=== PATIENT | female | born 1975 | race Caucasian/White ===

== ENCOUNTER 2017-07-27 11:57 | Observation (INO) | payer BC, MEDICAID ==
[2017-07-27] MEDS ORDERED: NS 0.9% 1000 ML* 1,000 ML IV ONE (12:21)
[2017-07-27] MEDS ORDERED: Aspirin EC TAB* 325 MG PO ONE (12:36)
--- NOTE | 2017-07-27 12:38 | RAD ---
Indication: Neurological changes. Code benoit. Comparison: March 05, 2015 MRI and March 01, 2015 CT. Technique: Noncontrast CT vertex of skull through foramen magnum. Report: The sulci, ventricles, and basal cisterns are normal for age. Valentine matter white matter differentiation is preserved without evidence for edema. No intra or extra axial hemorrhage, mass, or fluid collection detected. Unremarkable partially visualized orbital contents. Unremarkable calvarium and skull base. Unremarkable scalp. The visualized paranasal sinuses and mastoid air spaces are clear. IMPRESSION: Negative for intracranial hemorrhage or CT stigmata of ischemic stroke. No acute intracranial process evident. Negative exam. Results discussed with Dr. Hadley 07/27/2017 12:34 PM EST
[2017-07-27 12:40] LABS: ABS Basophils 0.1 10^3/ul (0-0.2); ABS Eosinophils 0.1 10^3/ul (0-0.6); ABS Lymphocytes 1.9 10^3/ul (1.0-4.8); ABS Monocytes 0.6 10^3/ul (0-0.8); ABS Neutrophils 7.8 10^3/ul (1.5-7.7); ABS Nucleated RBC 0 10^3/ul; Hematocrit 44 % (35-47); Hemoglobin 15.2 g/dl (12.0-16.0); Mean Corpuscular HGB Conc 35 g/dl (31-36); Mean Corpuscular Hemoglobin 31 pg (27-31); Mean Corpuscular Volume 89 fL (80-97); Mean Platelet Volume 7 um3 (7.4-10.4); Nucleated Red Blood Cells % 0; Platelet Count 284 10^3/ul (150-450); Red Blood Count 4.91 10^6/ul (4.0-5.4); Red Cell Distribution Width 14 % (10.5-15); White Blood Count 10.4 10^3/ul (3.5-10.8)
[2017-07-27 13:05] LABS: INR 0.94 (0.77-1.02)
--- NOTE | 2017-07-27 13:20 | RAD ---
HISTORY: Right arm numbness numbness, slurred speech COMPARISONS: None VIEWS: 1: frontal portable view of the chest at 12:55 PM FINDINGS: LINES AND TUBES: None. CARDIOMEDIASTINAL SILHOUETTE: The cardiomediastinal silhouette is normal for portable technique. PLEURA: The costophrenic angles are sharp. No pleural abnormalities are noted. LUNG PARENCHYMA: The lungs are clear. ABDOMEN: The upper abdomen is clear. There is no subphrenic gas. BONES AND SOFT TISSUES: No bone or soft tissue abnormalities are noted. IMPRESSION: NO ACTIVE CARDIOPULMONARY DISEASE.
[2017-07-27 14:21] LABS: Urine Appearance Cloudy; Urine Blood Negative (Negative); Urine Color Yellow; Urine Ketones Negative (Negative); Urine Protein Negative (Negative); Urine Specific Gravity 1.006 (1.010-1.030); Urine Urobilinogen Negative (Negative)
--- NOTE | 2017-07-27 15:09 | ECHO ---
Patient: JOSÉ MIGUEL BHARDWAJ Rec#: [id number] : 1975 Date: 07/27/2017 Age: 42y Height: 170.18 cm / 67.0 in Weight: 97.52 kg / 214.9 lbs Sex: F BSA: 2.09 Room#: ED-3 Admit Date#: 07/27/2017 Type: Inpatient Referring: Rickey Purcell Reading: Kurt Gordon MD Purchasing Analyst: Cherise Valentine RDCS CC: Xochilt Duran, DO Transthoracic Echocardiogram Indication: TIA BP: 115/71 HR: 61 Rhythm: NSR Findings History: Smoker, PTSD, headaches. Technical Comments: The study quality is fair. The study is technically limited due to patient body habitus. Completed at 1500. Left Ventricle: The left ventricular chamber size is normal. There is no left ventricular hypertrophy. Global left ventricular wall motion and contractility are within normal limits. There is normal left ventricular systolic function. The estimated ejection fraction is 55-60%. Normal left ventricular diastolic filling is observed. Left Atrium: The left atrial chamber size is normal. Right Ventricle: Moderator Band present. The right ventricular cavity size is normal. The right ventricular global systolic function is low normal. Right Atrium: The right atrial cavity size is normal. The bubble study is negative.There is no evidence of right to left shunting at the atrial level on bubble study. Aortic Valve: The aortic valve is trileaflet. There is mild thickening of the non coronary cusp. There is no evidence of aortic regurgitation. There is no evidence of aortic stenosis. Mitral Valve: The mitral valve leaflets do not appear thickened. There is a trace of mitral regurgitation. There is no evidence of mitral stenosis. Tricuspid Valve: The tricuspid valve leaflets are normal. There is a physiologic tricuspid regurgitation. Unable to estimate the right ventricular systolic pressure. There is no tricuspid stenosis. Pulmonic Valve: The pulmonic valve appears normal. There is no evidence of pulmonic regurgitation. There is no pulmonic stenosis. Pericardium: There is no significant pericardial effusion. A pericardial fat pad is visualized. Aorta: There is no dilatation of the ascending aorta. There is no dilatation of the aortic arch. The aortic root is normal in size. Pulmonary Artery: The main pulmonary artery appears normal. Venous: The inferior vena cava appears normal in size. There is a greater than 50% respiratory change in the inferior vena cava dimension. Contrast: Normal saline was used as contrast for the bubble study. Images 12 and 13. Intravenous contrast was used to help determine presence of intracardiac shunting. Conclusions Global left ventricular wall motion and contractility are within normal limits. There is normal left ventricular systolic function. The estimated ejection fraction is 55-60%. There is a trace of mitral regurgitation. There is a trace of mitral regurgitation. There is a physiologic tricuspid regurgitation. There is no evidence of right to left shunting at the atrial level on bubble study. No reports of prior studies are offered for comparison. Measurements Name Value Normal Range RVIDd (AP) 2D 3.1 cm (0.9 - 2.6) RVDdMajor (2D) 3.6 cm (2.2 - 4.4) RAd ISD 4CH 4.5 cm (3.4 - 4.9) RA (A4C)W 3.6 cm (2.9 - 4.6) IVSd (2D) 1 cm (0.6 - 1) LVPWd (2D) 0.8 cm (0.6 - 1) LVIDd (2D) 5 cm (3.6 - 5.4) LVIDs (2D) 3 cm - LV FS (2D) 39 % (25 - 45) Aortic Annulus 2 cm (1.4 - 2.6) Ao root diameter (2D) 3.1 cm (2.1 - 3.5) Ascending Ao 2.7 cm (2.1 - 3.4) Aortic arch 2.5 cm (1.8 - 3.4) LA dimension (AP) 2D 3.3 cm (2.3 - 3.8) LAd ISD 4CH 4.5 cm (2.9 - 5.3) LA ISD 4CH W 3.1 cm (2.5 - 4.5) Name Value Normal Range LA ESV SP 4CH (A/L) 35 ml - LA ESV SP 2CH (A/L) 43 ml - LA ESV BP (A/L) 39 ml - LA ESV BP (A/L) index 19 ml/m2 - LA ESV SP 4CH (MOD) 31 ml - LA ESV SP 2CH (MOD) 41 ml - Name Value Normal Range MV E-wave Vmax 0.87 m/sec - MV deceleration time 202.5 msec - MV A-wave Vmax 0.74 m/sec - MV E:A ratio 1.17 ratio - LV septal e' Vmax 0.13 m/sec - LV lateral e' Vmax 0.12 m/sec - LV E:e' septal ratio 6.69 ratio - LV E:e' lateral ratio 7.25 ratio - Name Value Normal Range AV Vmax 1.2 m/sec - AV VTI 23 cm - AV peak gradient 5.66 mmHg - AV mean gradient 2.71 mmHg - LVOT Vmax 0.99 m/sec - LVOT VTI 21.31 cm - LVOT peak gradient 3.96 mmHg - LVOT mean gradient 2.37 mmHg - RAFAELA Vmax 0.94 m/sec - Name Value Normal Range IVC diameter 1.5 cm - Name Value Normal Range PV Vmax 0.87 m/sec - PV peak gradient 3 mmHg -
--- NOTE | 2017-07-27 15:36 | RAD ---
INDICATION: TIA COMPARISON: None TECHNIQUE: Transverse and longitudinal scans of the carotid and vertebral arteries were performed with benoit scale, color Doppler, and spectral Doppler imaging. Stenosis criteria is based on flow velocities that correlate with visual internal carotid artery diameter (NASCET criteria) FINDINGS: Right carotid: There is no plaque. There is moderate intimal thickening. There is no spectral broadening. The peak systolic velocity of the internal carotid artery is 89 cm/s and the peak diastolic velocity 26 cm/s. The ICA/CCA ratio is calculated at 1.0. There is no stenosis. Left carotid: There is no plaque. There is intimal thickening. There is no spectral broadening. The peak systolic velocity of the internal carotid artery is 78 cm/s and the peak diastolic velocity 22 cm/s. The ICA/CCA ratio is calculated at 0.8. There is no stenosis. Right vertebral: Right vertebral waveforms are normal and the flow is antegrade. Left vertebral: Left vertebral waveforms are normal and the flow is antegrade. IMPRESSION: MILD INTIMAL THICKENING, OTHERWISE NEGATIVE CPT II Codes: 3100F RS
--- NOTE | 2017-07-27 16:02 | RAD ---
INDICATION: TIA COMPARISON: CT brain July 27, 2017; MRI brain March 05, 2015 TECHNIQUE: sagittal T1 FLAIR, axial diffusion, axial T1 FLAIR, axial T2, axial T2 FLAIR, and SWI images were acquired. FINDINGS: Craniocervical junction: The craniocervical junction appears normal. Ventricles/sulci: The ventricles and cisterns are normal in size and configuration for age. Brain parenchyma: There are no focal parenchymal abnormalities. There is no evidence of intracranial mass or mass effect. The diffusion weighted images show no evidence of acute ischemia. Intracranial hemorrhage: There is no intracranial hemorrhage. Extra-axial spaces: There are no extra-axial fluid collections or masses. Orbits: There are no MR abnormalities of the orbital structures. Paranasal sinuses/mastoid: Is mild swelling of nasal turbinates and there is minor mucosal thickening involving the ethmoid air cells and maxillary antra The mastoid air cells are well aerated. Vascular: No abnormalities are seen. Other: None IMPRESSION: NO ACUTE INTRACRANIAL FINDINGS.
[2017-07-27] MEDS ORDERED: Acetaminophen TAB* 325 MG PO PRN (16:22)
[2017-07-27] MEDS ORDERED: Ondansetron INJ* 2 MG/ML VIAL IV PRN (16:22)
[2017-07-27] MEDS ORDERED: ALPRAZolam TAB* 0.5 MG PO PRN (16:25)
[2017-07-27] MEDS ORDERED: CMCS Melatonin (NF) 3 MG TAB PO PRN (16:25)
[2017-07-27] MEDS ORDERED: Mouth Piece, Nicotine* 1 EACH CARTRIDGE INH ONE (18:15)
--- NOTE | 2017-07-27 19:43 | RAD ---
INDICATION: 42-year-old with TIA COMPARISON: MRI brain same date TECHNIQUE: 3-D phase contrast, axial source images was acquired. Reconstructed images of the anterior posterior circulation were generated. FINDINGS: Right carotid: The carotid artery at the skull base, carotid siphon, and carotid termination appear normal. Left carotid: The carotid artery at the skull base, carotid siphon, and carotid termination appear normal. Right middle and anterior cerebral arteries: There are no MR angiographic abnormalities of the middle or anterior cerebral arteries. Left middle and anterior cerebral arteries: There are no MR angiographic abnormalities of the middle or anterior cerebral arteries Right vertebral: The MR angiographic appearance of the visualized vertebral artery is normal. Left vertebral: The MR angiographic appearance of the visualized vertebral artery is normal. Basilar artery: The basilar artery and basilar tip appear normal. Posterior cerebral arteries: The distal distribution of the right and left posterior cerebral arteries is normal. [place]: The MR angiographic appearance of the [place] is normal. Source images show no focal brain parenchymal abnormalities or abnormal areas of enhancement. IMPRESSION: NORMAL STUDY.
[2017-07-27] MEDS: Nicotine Inhaler* 10 MG AMP INH PRN (19:47)
[2017-07-27] MEDS ORDERED: Nicotine Patch Removal NOTE FOLLOW UP SCH (21:00)
--- NOTE | 2017-07-27 21:28 | ED ---
Froy Garduno Jennifer, scribed for Polo Moreno MD on 07/27/17 at 1218 . Neurological HPI - HPI Summary HPI Summary: The patient is a 42 year old woman who presents to the ED with right arm numbness that began over one hour ago. She additionally complains of slurred speech. - History of Current Complaint Chief Complaint: EDNeurologicalDeficit Stated Complaint: RT ARM NUMBNESS,SLURRED SPEECH Hx Obtained From: Patient Onset/Duration: Sudden Onset, Started hours ago - one hour, Still Present Onset Severity: Mild Current Severity: Mild Neurological Deficit Location: RUE Pain Intensity: 0 Pain Scale Used: 0-10 Numeric Character: Numbness/Tingling, Impaired Speech - Slurred Aggravating: Nothing Alleviating: Nothing - Additional Pertinent History Primary Care Physician: EDIN - Allergy/Home Medications Allergies/Adverse Reactions: Allergies Allergy/AdvReac Type Severity Reaction Status Date / Time iodine Allergy Intermediate Rash And Verified 07/27/17 12:41 Itching morphine Allergy Intermediate Rash And Verified 07/27/17 12:41 Itching Home Medications: Home Medications BuPROPion XL* [Bupropion XL*] 300 mg PO DAILY 07/27/17 [History Confirmed ] Melatonin (NF) [Meladox] 3 mg PO BEDTIME 07/27/17 [History Confirmed 07/27/17] PMH/Surg Hx/FS Hx/Imm Hx Cardiovascular History: Denies: Hx Pacemaker/ICD Musculoskeletal History: Reports: Other Musculoskeletal History - left foot fracture and metal pinned Sensory History: Reports: Hx Contacts or Glasses Denies: Hx Hearing Aid Opthamlomology History: Reports: Hx Contacts or Glasses Neurological History: Denies: Hx Dementia Psychiatric History: Reports: Hx Depression, Hx Panic Disorder, Hx Post Traumatic Stress Disorder, Hx Inpatient Treatment, Hx Community Mental Health Tx Denies: Hx Eating Disorder, Hx of Violent Episodes Against Others - Surgical History Surgery Procedure, Year, and Place: TUBAL LIGATION, CSECTION X4, CHOLECYSTECTOMY ; gallbladder; ankle Infectious Disease History: No Infectious Disease History: Denies: Traveled Outside the [place] in Last 30 Days - Family History Known Family History: Positive: Hypertension - Father - Social History Alcohol Use: None Substance Use Type: Reports: None Hx Tobacco Use: Yes Smoking Status (MU): Light Every Day Tobacco Smoker Type: Cigarettes Amount Used/How Often: "3 cigs per day" Length of Time of Smoking/Using Tobacco: "20 plus" Have You Smoked in the Last Year: Yes Review of Systems Negative: Fever Positive: Numbness - Right arm, Slurred Speech All Other Systems Reviewed And Are Negative: Yes Physical Exam - Summary Physical Exam Summary: Appearance: The patient is well-nourished in no acute distress and in no acute pain. Skin: The skin is warm and dry and skin color reflects adequate perfusion. HEENT: ~The head is normocephalic and atraumatic. The pupils are equal and reactive. The conjunctivae are clear and without drainage. ~Nares are patent and without drainage. ~Mouth reveals moist mucous membranes and the throat is without erythema and exudate. ~The external ears are intact. The ear canals are patent and without drainage. The tympanic membranes are intact. Neck: the neck is supple with full range of motion and non-tender. There are no carotid bruits. ~There is no neck vein distension. Respiratory: Chest is non-tender. ~Lungs are clear to auscultation and breath sounds are symmetrical and equal. Cardiovascular: Heart is regular rate and rhythm. ~There is no murmur or rub auscultated. ~~There is no peripheral edema and pulses are symmetrical and equal. Abdomen: The abdomen is soft and non-tender. ~There are normal bowel sounds heard in all four quadrants and there is no organomegaly palpated. Musculoskeletal: There is no back tenderness noted. ~Extremities are non-tender with full range of motion. ~There is good capillary refill. ~There is no peripheral edema or calf tenderness elicited. Neurological: Patient is alert and oriented to person, place and time. ~The patient has symmetrical motor strength in all four extremities. ~Cranial nerves are grossly intact. Deep tendon reflexes are symmetrical and equal in all four extremities. NIH stroke scale is 0. Psychiatric: The patient has an appropriate affect and does not exhibit any anxiety or depression. Triage Information Reviewed: Yes Vital Signs On Initial Exam: Initial Vitals Temp Pulse Resp BP Pulse Ox 97.7 F 90 19 115/71 97 07/27/17 12:01 07/27/17 12:07/27/17 12:07/27/17 12:07/27/17 12:01 Vital Signs Reviewed: Yes Diagnostics - Vital Signs Vital Signs Temp Pulse Resp BP Pulse Ox 07/27/17 12:01 97.7 F 90 19 115/71 97 - Laboratory Lab Results: Lab Results 07/27/17 07/27/17 07/27/17 Range/Units 12:15 12:15 12:15 WBC 10.4 (3.5-10.8) 10^3/ul RBC 4.91 (4.0-5.4) 10^6/ul Hgb 15.2 (12.0-16.0) g/dl Hct 44 (35-47) % MCV 89 (80-97) fL MCH 31 (27-31) pg MCHC 35 (31-36) g/dl RDW 14 (10.5-15) % Plt Count 284 (150-450) 10^3/ul MPV 7 L (7.4-10.4) um3 Neut % (Auto) 75.0 (38-83) % Lymph % (Auto) 18.0 L (25-47) % Carroll % (Auto) 5.5 (1-9) % Eos % (Auto) 1.0 (0-6) % Baso % (Auto) 0.5 (0-2) % Absolute Neuts (auto) 7.8 H (1.5-7.7) 10^3/ul Absolute Lymphs (auto) 1.9 (1.0-4.8) 10^3/ul Absolute Monos (auto) 0.6 (0-0.8) 10^3/ul Absolute Eos (auto) 0.1 (0-0.6) 10^3/ul Absolute Basos (auto) 0.1 (0-0.2) 10^3/ul Absolute Nucleated RBC 0 10^3/ul Nucleated RBC % 0 INR (Anticoag Therapy) 0.94 (0.77-1.02) APTT 32.3 (26.0-36.3) seconds Sodium 133 (133-145) mmol/L Potassium 3.7 (3.5-5.0) mmol/L Chloride 99 L (101-111) mmol/L Carbon Dioxide 27 (22-32) mmol/L Anion Gap 7 (2-11) mmol/L BUN 16 (6-24) mg/dL Creatinine 0.85 (0.51-0.95) mg/dL Est GFR ( Amer) 93.9 (>60) Est GFR (Non-Af Amer) 73.0 (>60) BUN/Creatinine Ratio 18.8 (8-20) Glucose 95 (70-100) mg/dL POC Glucose (mg/dL) (70-100) mg/dL Lactic Acid (0.5-2.0) mmol/L Calcium 10.2 (8.6-10.3) mg/dL Total Bilirubin 0.30 (0.2-1.0) mg/dL AST 20 (13-39) U/L ALT 28 (7-52) U/L Alkaline Phosphatase 84 (34-104) U/L Troponin I 0.00 (<0.04) ng/mL Total Protein 7.9 (6.4-8.9) g/dL Albumin 4.6 (3.2-5.2) g/dL Globulin 3.3 (2-4) g/dL Albumin/Globulin Ratio 1.4 (1-3) Triglycerides 262 mg/dL Cholesterol 239 mg/dL LDL Cholesterol 156 mg/dL HDL Cholesterol 30.3 mg/dL Folate (>3.99) ng/mL TSH (0.34-5.60) mcIU/mL Beta HCG, Quant 1.49 mIU/mL Urine Color Urine Appearance Urine pH (5-9) Ur Specific [place] (1.010-1.030) Urine Protein (Negative) Urine Ketones (Negative) Urine Blood (Negative) Urine Nitrate (Negative) Urine Bilirubin (Negative) Urine Urobilinogen (Negative) Ur Leukocyte Esterase (Negative) Urine Glucose (Negative) Blood Type Antibody Screen 07/27/17 07/27/17 07/27/17 Range/Units 12:15 12:15 12:15 WBC (3.5-10.8) 10^3/ul RBC (4.0-5.4) 10^6/ul Hgb (12.0-16.0) g/dl Hct (35-47) % MCV (80-97) fL MCH (27-31) pg MCHC (31-36) g/dl RDW (10.5-15) % Plt Count (150-450) 10^3/ul MPV (7.4-10.4) um3 Neut % (Auto) (38-83) % Lymph % (Auto) (25-47) % Carroll % (Auto) (1-9) % Eos % (Auto) (0-6) % Baso % (Auto) (0-2) % Absolute Neuts (auto) (1.5-7.7) 10^3/ul Absolute Lymphs (auto) (1.0-4.8) 10^3/ul Absolute Monos (auto) (0-0.8) 10^3/ul Absolute Eos (auto) (0-0.6) 10^3/ul Absolute Basos (auto) (0-0.2) 10^3/ul Absolute Nucleated RBC 10^3/ul Nucleated RBC % INR (Anticoag Therapy) (0.77-1.02) APTT (26.0-36.3) seconds Sodium (133-145) mmol/L Potassium (3.5-5.0) mmol/L Chloride (101-111) mmol/L Carbon Dioxide (22-32) mmol/L Anion Gap (2-11) mmol/L BUN (6-24) mg/dL Creatinine (0.51-0.95) mg/dL Est GFR ( Amer) (>60) Est GFR (Non-Af Amer) (>60) BUN/Creatinine Ratio (8-20) Glucose (70-100) mg/dL POC Glucose (mg/dL) (70-100) mg/dL Lactic Acid 1.3 (0.5-2.0) mmol/L Calcium (8.6-10.3) mg/dL Total Bilirubin (0.2-1.0) mg/dL AST (13-39) U/L ALT (7-52) U/L Alkaline Phosphatase (34-104) U/L Troponin I (<0.04) ng/mL Total Protein (6.4-8.9) g/dL Albumin (3.2-5.2) g/dL Globulin (2-4) g/dL Albumin/Globulin Ratio (1-3) Triglycerides mg/dL Cholesterol mg/dL LDL Cholesterol mg/dL HDL Cholesterol mg/dL Folate 10.40 (>3.99) ng/mL TSH 2.41 (0.34-5.60) mcIU/mL Beta HCG, Quant mIU/mL Urine Color Urine Appearance Urine pH (5-9) Ur Specific [place] (1.010-1.030) Urine Protein (Negative) Urine Ketones (Negative) Urine Blood (Negative) Urine Nitrate (Negative) Urine Bilirubin (Negative) Urine Urobilinogen (Negative) Ur Leukocyte Esterase (Negative) Urine Glucose (Negative) Blood Type A Positive Antibody Screen Negative 07/27/17 07/27/17 Range/Units 12:29 13:43 WBC (3.5-10.8) 10^3/ul RBC (4.0-5.4) 10^6/ul Hgb (12.0-16.0) g/dl Hct (35-47) % MCV (80-97) fL MCH (27-31) pg MCHC (31-36) g/dl RDW (10.5-15) % Plt Count (150-450) 10^3/ul MPV (7.4-10.4) um3 Neut % (Auto) (38-83) % Lymph % (Auto) (25-47) % [place] % (Auto) (1-9) % Eos % (Auto) (0-6) % Baso % (Auto) (0-2) % Absolute Neuts (auto) (1.5-7.7) 10^3/ul Absolute Lymphs (auto) (1.0-4.8) 10^3/ul Absolute Monos (auto) (0-0.8) 10^3/ul Absolute Eos (auto) (0-0.6) 10^3/ul Absolute Basos (auto) (0-0.2) 10^3/ul Absolute Nucleated RBC 10^3/ul Nucleated RBC % INR (Anticoag Therapy) (0.77-1.02) APTT (26.0-36.3) seconds Sodium (133-145) mmol/L Potassium (3.5-5.0) mmol/L Chloride (101-111) mmol/L Carbon Dioxide (22-32) mmol/L Anion Gap (2-11) mmol/L BUN (6-24) mg/dL Creatinine (0.51-0.95) mg/dL Est GFR ( Amer) (>60) Est GFR (Non-Af Amer) (>60) BUN/Creatinine Ratio (8-20) Glucose (70-100) mg/dL POC Glucose (mg/dL) 84 (70-100) mg/dL Lactic Acid (0.5-2.0) mmol/L Calcium (8.6-10.3) mg/dL Total Bilirubin (0.2-1.0) mg/dL AST (13-39) U/L ALT (7-52) U/L Alkaline Phosphatase (34-104) U/L Troponin I (<0.04) ng/mL Total Protein (6.4-8.9) g/dL Albumin (3.2-5.2) g/dL Globulin (2-4) g/dL Albumin/Globulin Ratio (1-3) Triglycerides mg/dL Cholesterol mg/dL LDL Cholesterol mg/dL HDL Cholesterol mg/dL Folate (>3.99) ng/mL TSH (0.34-5.60) mcIU/mL Beta HCG, Quant mIU/mL Urine Color Yellow Urine Appearance Cloudy Urine pH 6.0 (5-9) Ur Specific [place] 1.006 L (1.010-1.030) Urine Protein Negative (Negative) Urine Ketones Negative (Negative) Urine Blood Negative (Negative) Urine Nitrate Negative (Negative) Urine Bilirubin Negative (Negative) Urine Urobilinogen Negative (Negative) Ur Leukocyte Esterase Negative (Negative) Urine Glucose Negative (Negative) Blood Type Antibody Screen Result Diagrams: 07/27/17 12:15 07/27/17 12:15 Lab Statement: Any lab studies that have been ordered have been reviewed, and results considered in the medical decision making process. - Radiology CXR Xray Interpretation: No Acute Changes - NO ACTIVE CARDIOPULMONARY DISEASE. Dr. Moreno has reviewed this report. Radiology Interpretation Completed By: Radiologist - CT CT Brain CT Interpretation: No Acute Changes - Negative for intracranial hemorrhage or CT stigmata of ischemic stroke. No acute intracranial process evident. Negative exam. Dr. Moreno has reviewed this report. CT Interpretation Completed By: Radiologist - EKG 12:22 Cardiac Rate: NL EKG Rhythm: Sinus Rhythm - 80 BPM - Additional Comments Diagnostic Additional Comments: Carotid Doppler Study. Interpreted by a radiologist. IMPRESSION: MILD INTIMAL THICKENING, OTHERWISE NEGATIVE CPT II Codes: 3100F PQRS. Dr. Moreno has reviewed this report. Brain MRI. Interpreted by a radiologist. IMPRESSION: NO ACUTE INTRACRANIAL FINDINGS. Dr. Moreno has reviewed this report. NIH Scale - NIH Scale Level of Consciousness: Alert/Keenly Responsive Ask Patient the Month and His/Her Age: Both Correct Ask Pt to Open/Close Eyes and Area Counselor/Release Non-Paretic Hand: Both Correctly Best Gaze (Only Horizontal Eye Movement): Normal Visual Field Testing: No Visual Loss Facial Paresis-Pt to Smile & Close Eyes or [place] Symmetry: Normal/Symmetrical Motor Function - Right Arm: No Drift-Holds 10 Seconds Motor Function - Left Arm: No Drift-Holds 10 Seconds Motor Function - Right Leg: No Drift-Holds 10 Seconds Motor Function - Left Leg: No Drift-Holds 10 Seconds Limb Ataxia-Must be out of Proportion to Weakness Present: Absent Sensory (Use Pinprick to Test Arms/Legs/Trunk/Face): Normal Best Language (Describe Picture, Name Items): No Aphasia Dysarthria (Read Several Words): Normal Extinction and Inattention: No Abnormality Total Score: 0 Course/Dx - Course Course Of Treatment: A Code Swanson was called for MS. Vásquez although her stroke scale was essentially 0. She had a negative CT and labs and was seen by Dr. Purcell and is being admitted to the hospitalist service. - Diagnoses Provider Diagnoses: TIA (transient ischemic attack) Discharge - Discharge Plan Condition: Fair Disposition: ADMITTED TO [facility] documentation as recorded by the Froy glass Jennifer accurately reflects the service I personally performed and the decisions made by me, Polo Moreno MD.
--- NOTE | 2017-07-27 21:40 | CONS ---
CC: Dr. Xochilt Duran * CONSULTATION NOTE: DATE OF CONSULT: 07/27/17 LOCATION: ER bed 3. PRIMARY CARE PROVIDER: Dr. Xochilt Duran. REASON FOR CONSULT: Numbness and tingling, speech difficulty. HISTORY OF PRESENT ILLNESS: Ms. Reva Vásquez is a 42-year-old female with a history of some depression and anxiety, no prior stroke, no prior heart attacks or hypertension, hyperlipidemia, otherwise in good health. She is obese and she does smoke, approximately 26-vxnh-qldt history. She was in her usual state of health when at 10 a.m. this morning, she developed sudden onset of right arm tingling, may be a little numbness and then some difficulty getting her words out with possible slurred speech, although she is unclear. The symptoms lasted for about an hour and half and then resolved. Currently, she is not having any numbness or tingling in her right arm or leg. She is having no slurred speech. She is having no facial droop. She otherwise feels okay. She denies any recent headaches, vision changes, hearing changes, swallowing problems, no left-sided numbness, tingling or weakness. She denies any real weakness in the right lower extremity and if any, subtle weakness in the right upper extremity. She denies any recent fevers, chills, nausea, vomiting, diarrhea, constipation, recent illnesses, fevers. No shortness of breath, dyspnea on exertion, dysuria, frequency or urgency. She has otherwise been in her usual state of health. She has never had any similar symptoms in the past. She has no history of clotting disorders or bleeding disorders. She states that her depression is generally well controlled, no suicidal or homicidal ideations. PAST MEDICAL HISTORY: As noted above. CURRENT MEDICATIONS: 1. Diphenhydramine 25 mg p.o. q.12 hours p.r.n. 2. Sertraline 200 mg p.o. daily. 3. Seroquel 100 mg p.o. at bedtime. 4. Meclizine 25 mg p.o. t.i.d. p.r.n. 5. Ferrous sulfate 325 mg daily. 6. Abilify 5 mg p.o. q.a.m. 7. Xanax 0.25 mg p.o. b.i.d. p.r.n., which she generally takes at night. ALLERGIES: She is allergic to IODINE and MORPHINE SULFATE. FAMILY HISTORY: Noncontributory. SOCIAL HISTORY: She smokes, 02-dpof-xour history. She lives with her , has 4 children. She denies any alcohol use. She occasionally smokes marijuana , last time was this morning. She denies any other illicit drug use or alcohol use. REVIEW OF SYSTEMS: A 14-organ systems is noted above, otherwise negative. PHYSICAL EXAM: Vital Signs: Temperature of 97.7, pulse rate of 90, respiratory rate of 19, blood pressure 115/71, satting 97%. General: She is a well-nourished, well-developed, obese female, lying in her hospital bed. Her is at the bedside. She is pleasant, well-dressed, well-groomed. HEENT : She is normocephalic, atraumatic. Sclerae anicteric. Mucous membranes are moist. She has poor dentition with no dentures in place. Neck is supple. No thyromegaly, no carotid bruits, no meningismus. Chest: Clear to auscultation bilaterally. Cardiovascular: Regular rate and rhythm without murmurs, gallops, or rubs. Abdomen is obese, nontender. Extremities: No clubbing, cyanosis, or edema. Her skin is warm and dry without lesions. On neurologic exam, she is awake, alert, oriented x3. Her speech is fluent. There is no dysarthria. Repetition is intact. Recall of recent or remote events is intact. Vocabulary is intact. Her mood is dysthymic. Affect, mood congruent. Cranial nerves II through XII, pupils are equal, round, and reactive to light. Extraocular muscles are intact. Visual ortiz are full to confrontation to finger counting. No nystagmus, no diplopia. Facial sensation is intact throughout. Face is symmetric, no drooping or weakness. Hearing is intact bilaterally. Palate raises symmetrically. Tongue is midline. Sternocleidomastoid and trapezius are 5/5. Her motor exam, she is spontaneously moving all extremities antigravity 5/5 throughout. No drift. Normal tone and bulk. Sensation is intact to light touch and pinprick throughout. There are no focal deficits to any modalities throughout. No paresthesias noted. DTRs are 1+ and symmetric in the upper extremities, 2+ in the patella, absent at the ankle. Equivocal Babinski. Gkhgxg-mm-bpgs and rapid alternating movements are intact without any tremors, no resting tremors. No dysdiadochokinesia or past pointing. Gait was not tested at this time as she is able to stand, she walked into the ER unassisted and she states that she feels steady. DIAGNOSTIC STUDIES/LAB DATA: Lab work is pending. CT of the head, I reviewed the films personally, negative for any acute intracranial abnormalities. ASSESSMENT AND PLAN: Ms. Vásquez is a 42-year-old female with smoking as her primary risk factor. She has a 44-ctes-flib history. Occasionally smokes marijuana, last time this morning. Denies any other illicit substances. She has no prior history of stroke or heart attack. Denies any other symptoms including no chest pain, no vision changes, no focal weakness. Her speech difficulties and right-sided upper extremity paresthesias have now resolved. She is currently asymptomatic. At this point, given her risk factor, the plan is to admit her for TIA workup. She will get an MRI of the brain without contrast, CT angiogram of the head and neck, echocardiogram with bubble. We will go ahead and give her a [address] is negative. Check fasting lipids, check labs to rule out reversible causes of stroke. Place her on telemetry and look for any evidence of cardiac arrhythmias. Check fasting lipids, add statin if necessary. Continue her medications for depression and anxiety and follow her closely. If her workup is negative, she will likely go home tomorrow. At this point, I am not certain that her symptoms represent a TIA, but we will proceed with a workup. I will make further recommendations as necessary. Thank you for the opportunity to participate in her care. [id number]/[facility] #: [id number] JENIFER
--- NOTE | 2017-07-27 22:29 | HP ---
CC: Dr. Xochilt Duran; Dr. Purcell * HISTORY AND PHYSICAL: DATE OF ADMISSION: 07/27/17 PRIMARY CARE PROVIDER: Dr. Xochilt Duran. CONSULTING NEUROLOGIST: Dr. Purcell. ATTENDING PHYSICIAN WHILE IN THE HOSPITAL: Nahid Solares MD * (report dictated by Nilton Cobb NP) CHIEF COMPLAINT: 1. Difficulty with speech. 2. Right hand weakness. HISTORY OF PRESENT ILLNESS: Mrs. 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 She also has a history of heavy smoking. She comes in to our ER today stating that [place] the mall, she noticed that she was having trouble grabbing a cup with her right hand. She then noticed that she was having difficulty with her words, particularly trying to get them out. She says she knew what she wanted to say, but she could not get them out and when they did come out they were slurred. She was concerned, she drove to a [employer] and called her to come get her and her children fortunately were with her, they ended up actually driving her here. She denied any fascial drooping. She said her right side of the body did feel weak, particularly her arms. She said it felt like it got weight, she could to really move it that well. She said the symptoms lasted for at least an hour if not longer, but they got better by the time she got here in the ER. A Code Swanson was called as she did have some residual symptoms and while in the ER, her symptoms completely resolved. She had no trouble with her vision, no fascial drooping, but there was definitely weakness particularly in the arm, trouble with speech. No weakness in the leg or trouble with walking. She denied having any chest pain or shortness of breath. No palpitations with this. There was no headache. She denies any recent illnesses. She said she had bronchitis like a month and a half ago, but in the last few days, the last week no fever, chills, cough, no chest pain or any shortness of breath. Because of the history of smoking and the fact that she did have significant TIA type symptoms, we were asked to evaluate for admission. PAST MEDICAL HISTORY: Significant for: 1. 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 2. PTSD. 3. IBS-D. 4. Depression. 5. Anxiety. 6. Borderline personality disorder. PAST SURGICAL HISTORY: 1. She has had x4. 2. Ankle surgery x3. 3. Tubal ligation. 4. Cholecystectomy. HOME MEDICATIONS: Include: 1. Melatonin 2 mg at bedtime as needed. 2. Bupropion XL 300 mg daily. 3. Zoloft 100 mg daily. 4. Abilify 5 mg daily. 5. Xanax 1 mg at bedtime as needed. ALLERGIES TO MEDICATIONS: Include IODINE and MORPHINE. FAMILY HISTORY: Her mother's history is reviewed, it is noncontributory, according to her is healthy. The father did have a history of duodenal cancer and cirrhosis. SOCIAL HISTORY: She is a 2 pack a day smoker for about 25 years. She rarely drinks alcohol. She smokes marijuana occasionally. Surrogate decision maker is her . REVIEW OF SYSTEMS: There is no documented fever. She denied having any significant weight change. There was no double vision. She denies having any ear discharge. There is no rhinorrhea, no sore throat, no thyroid enlargement. She denied having any chest pain. There is no orthopnea, no nocturnal dyspnea. There was no abdominal pain. No nausea, no vomiting. No dysuria, no frequency. There was no seizure. No loss of consciousness, no pruritus, and no skin ulceration. Review of 14 systems completed, all others negative. PHYSICAL EXAMINATION GENERAL: At this time, Ms. Vásquez is a 42-year-old female patient. She is sitting in the ED stretcher. She does not appear to be in any acute distress. VITAL SIGNS: Blood pressure 97/65, pulse 71, respirations 20, O2 sat 95%, and temperature 97.7. HEENT: Head atraumatic. Eyes; sclerae anicteric and not pale. NECK: Supple. Throat, oral mucosa appears to be dry. No oropharyngeal erythema. LUNGS: Clear to auscultation. No wheezes, rales, or rhonchi. HEART: Sounds S1 and S2. Regular rate and rhythm. No murmurs, rubs, or gallops. ABDOMEN: Soft, flat, nontender. Bowel sounds are present. EXTREMITIES: Pulses are 2+ throughout. She is moving all 4 extremities now with 5/5 strength. NEUROLOGIC: She is awake, she is alert, she is oriented x3. Her speech is clear. Her tongue is midline. Tree Planter are equal. Gazeaa-pm-hgrf and heel-to- bonilla intact bilaterally. No facial drooping. Her speech is fluent. She had no gross focal deficits. SKIN: Intact. LABORATORY DATA: WBC 10.4, RBC of 4.91, hemoglobin 15.2, hematocrit of 44, platelet count of 284,000. INR was 0.94, PTT of 32.3. Sodium 133, potassium 3.7, chloride 99, bicarb 27, BUN 16, creatinine 0.85, glucose 95, lactate 1.3, calcium 10.2, total bili 0.3, AST 20, ALT 28, alk phos 84, troponin 0, albumin of 4.6, LDL was 156, TSH of 2.4. Beta hCG was 1.49. Urine was negative. IMAGING: She had multiple imaging in the ED starting out with brain CT. Impression: Negative for intracranial hemorrhage or CT stigmata of ischemic stroke. No acute intracranial process evident. Negative exam. Chest x-ray obtained today, impression: No active cardiopulmonary disease. EKG obtained today shows a normal sinus rhythm with a rate of 80. No ST elevations or T- wave inversions. There was a previous EKG from 2 years ago, appears to be unchanged to today's EKG. She did have a brain MRI obtained today as well that showed no acute intracranial findings. She had a thoracic echo today which showed conclusions: Global left ventricular wall motion and contractility are within normal limits. Normal left ventricular systolic function. EF of 55% to 60%. Trace mitral regurgitation. Physiologic tricuspid regurgitation. No evidence of right to left shunting at the atrial level. She had a carotid Doppler study which showed mild intimal thickening, otherwise negative. Old medical records were reviewed. ASSESSMENT/PLAN: Ms. Vásquez is a 42-year-old female patient coming into the ED today with complaints of difficulty with speech and weakness to her right hand. We were asked to evaluate for admission. She will be admitted under observation status for: 1. Transient ischemic attack. At this point Dr. Purcell did evaluate the patient. She is allergic to IODINE. I do want to get an MRA of the head to look at her intracranial circulation which I have ordered. Dr. Purcell again will be following. I am getting an A1c and a lipid panel. We will get neuro checks every 4 hours, place the patient on telemetry to monitor for atrial fibrillation and will follow closely and will start her on an aspirin for now. Her biggest risk factor is her smoking which I have encouraged her to stop. 2. History of posttraumatic stress disorder. Continue supportive care. 3. History of irritable bowel syndrome. Continue with current medical regimen. 4. Anxiety with depression. Continue meds as prescribed. 5. Borderline personality disorder. Continue supportive care, meds as prescribed. 6. History of catatonia, not an active issue. 7. DVT prophylaxis. She will be placed on SCDs. 8. Code status, full code. 9. Fluids, electrolytes, and nutrition. She can have a heart-healthy diet. TIME SPENT: Time spent on the admission 60 minutes, greater than half the time spent [id number] with the patient obtaining my history and physical, other half time spent going over the plan of care with the patient, implementing the plan of care. I discussed the plan of care with my attending, Dr. Solares, who is in agreement. NILTON COBB, SARA [id number]/[facility] #: [id number] JENIFER
[2017-07-28 05:20] LABS: ABS Basophils 0 10^3/ul (0-0.2); ABS Eosinophils 0.1 10^3/ul (0-0.6); ABS Lymphocytes 1.5 10^3/ul (1.0-4.8); ABS Monocytes 0.6 10^3/ul (0-0.8); ABS Neutrophils 5.6 10^3/ul (1.5-7.7); ABS Nucleated RBC 0 10^3/ul; Eosinophil % 1.5 % (0-6); Hematocrit 40 % (35-47); Hemoglobin 13.9 g/dl (12.0-16.0); Lymphocyte % 19.1 % (25-47); Mean Corpuscular HGB Conc 35 g/dl (31-36); Mean Corpuscular Hemoglobin 31 pg (27-31); Mean Corpuscular Volume 89 fL (80-97); Mean Platelet Volume 7 um3 (7.4-10.4); Nucleated Red Blood Cells % 0; Platelet Count 247 10^3/ul (150-450); Red Blood Count 4.52 10^6/ul (4.0-5.4); Red Cell Distribution Width 13 % (10.5-15); White Blood Count 7.9 10^3/ul (3.5-10.8)
[2017-07-28 05:25] LABS: INR 1.02 (0.77-1.02)
[2017-07-28 05:33] LABS: EGFR Non-African American 78.3 (>60)
[2017-07-28] MEDS ORDERED: Nicotine PATCH 21 MG/24 HR* PATCH TRANSDERM SCH (08:00)
[2017-07-28] MEDS ORDERED: Sertraline* 100 MG TAB PO SCH ×2 (09:00→18:00)
[2017-07-28] MEDS ORDERED: BuPROPion XL* 300 MG TAB.XL PO SCH (09:00)
[2017-07-28] MEDS ORDERED: ARIPiprazole TAB* 5 MG PO SCH ×2 (09:00→18:00)
[2017-07-28] MEDS ORDERED: Aspirin EC Low Dose* 81 MG TAB.EC PO SCH (09:00)
[2017-07-28] MEDS: Nicotine Inhaler* 10 MG AMP INH PRN (10:37)
--- NOTE | 2017-07-28 12:24 | PN ---
Subjective Date of Service: 07/28/17 Interval History: Patient seen and examined at bedside. Denies fever, chills, shortness of breath , chest discomfort, N/V/D. Denies any further right sided weakness or hand tingling. Tele: Sinus rhythm, rate 60's. Family History: Unchanged from Admission Social History: Unchanged from Admission Past Medical History: Unchanged from Admission Objective Active Medications: Acetaminophen (Tylenol Tab*) 650 mg PO Q4H PRN Reason: FEVER/PAIN Alprazolam (Xanax Tab*) 1 mg PO BEDTIME PRN Reason: ANXIETY/INSOMNIA Aripiprazole (Abilify Tab*) 5 mg PO QPM [facility] Aspirin (Aspirin Ec Low Dose*) 81 mg PO DAILY [facility] Bupropion HCl (Bupropion Xl*) 300 mg PO DAILY [facility] Melatonin (Melatonin (Nf)) 3 mg PO BEDTIME PRN; Protocol Reason: INSOMNIA Nicotine (Nicotine Patch 21 Mg/24 Hr*) 1 patch TRANSDERM DAILY@0800 [facility] Nicotine (Nicotine Inhaler*) 10 mg INH Q2H PRN Reason: CRAVINGS Ondansetron HCl (Zofran Inj*) 4 mg IV Q6H PRN Reason: NAUSEA Pharmacy Profile Note (Nicotine Patch Removal Note*) 1 note FOLLOW UP 2100 [facility] Sertraline HCl (Zoloft*) 100 mg PO DAILY@1800 [facility] Vital Signs - 8 hr 07/28/17 08:24 Temperature 98.3 F Pulse Rate 75 Respiratory 16 Rate Blood Pressure 108/49 (mmHg) O2 Sat by Pulse 93 Oximetry Oxygen Devices in Use Now: None Appearance: NAD, sitting up in bed Ears/Nose/Mouth/Throat: Mucous Membranes Moist Respiratory: Symmetrical Chest Expansion and Respiratory Effort, Clear to Auscultation Cardiovascular: NL Sounds; No Murmurs; No JVD, RRR Abdominal: NL Sounds; No Tenderness; No Distention Extremities: No Edema Skin: No Rash or Ulcers Neurological: Alert and Oriented x 3, NL Muscle Strength and Tone, - - Hand date puller equal, no pronator drift. Lines/Tubes/Other Access: Clean, Dry and Intact Peripheral IV - site benign Nutrition: Taking PO's Result Diagrams: 07/28/17 05:05 07/28/17 05:05 Additional Lab and Data: Assess/Plan/Problems-Billing Assessment: Ms. Vásquez is a 42 yo female with PMH significant for PTSD, IBS, depression, anxiety, borderline personality, and past episode of catatonia who presented to the emergency room with complaints of difficulty with speech and weakness to her right hand. - Patient Problems (1) TIA (transient ischemic attack) Comment: - Negative work-up - No further right hand weakness or tingling (2) PTSD (post-traumatic stress disorder) Code(s): F43.10 - POST-TRAUMATIC STRESS DISORDER, UNSPECIFIED SNOMED Code(s): 32735426 Comment: - Supportive care (3) IBS (irritable bowel syndrome) Comment: - Continue home regimen (4) Anxiety and depression Code(s): F41.8 - OTHER SPECIFIED ANXIETY DISORDERS SNOMED Code(s): 433086679 Comment: - Continue home medications (5) Borderline personality disorder Code(s): F60.3 - BORDERLINE PERSONALITY DISORDER SNOMED Code(s): 65545094 (6) DVT prophylaxis Code(s): SUN2354 - SNOMED Code(s): 054914331 (7) Full code status Code(s): Z78.9 - OTHER SPECIFIED HEALTH STATUS SNOMED Code(s): 909475690 Status and Disposition: OBV. Stable for discharge to home today.
[2017-07-28 14:10] VITALS: BP 108/67
--- NOTE | 2017-07-29 19:33 | DS ---
CC: Dr. Xochilt Duran; Dr. Rickey Purcell * DISCHARGE SUMMARY: DATE OF ADMISSION: 07/27/17 DATE OF DISCHARGE: 07/28/17 ATTENDING PHYSICIAN: Dr. Violet Jovel * (dictated by Daniel Steele NP). PRIMARY CARE PROVIDER: Dr. Xochilt Duran. PRIMARY DIAGNOSES: Right hand weakness and tingling and difficulty speech, resolved. SECONDARY DIAGNOSIS: 1. History of posttraumatic stress disorder. 2. History of depression. 3. History of anxiety. 4. History of borderline personality disorder. CONSULTATIONS WHILE IN THE HOSPITAL: Dr. Rickey Purcell with Neurology. STUDIES WHILE IN THE HOSPITAL: Brain CT from 07/27/17. Radiologist's impression: Negative for intracranial hemorrhage or CT stigmata of ischemic stroke. No acute intracranial process evident. Negative exam. Chest x-ray from 07/27/17. Radiologist's impression: No active cardiopulmonary disease. Brain MRI from 07/27/17. Radiologist's impression: No acute intracranial findings. Transthoracic echocardiogram from 07/27/17. Student Ministries Director's conclusion: Global left ventricular wall motion and contractility are within normal limits. There is normal left ventricular systolic function. The estimated ejection fraction is 55% to 60%. There is trace mitral regurgitation, physiological tricuspid regurgitation. There is no evidence of pnygx-ea-bzsl shunting at the atrial level on the bubble study. No reports of prior studies are offered for comparison. Bilateral carotid ultrasound on 07/27/17. Radiologist's impression: Mild intimal thickening, otherwise negative. Brain MRA on 07/27/17. Radiologist's impression: Normal study. DISCHARGE MEDICATIONS: New home medications: 1. Atorvastatin 40 mg oral daily. 2. Aspirin 81 mg oral daily. 3. Nicotine inhaler 10 mg inhalation every 2 hours as needed for cravings, maximum dose 16 cartridges in a day. Continued home medications: 1. Nicotine patch 21 mg transdermal daily. 2. Sertraline 100 mg oral daily. 3. Abilify 5 mg oral daily. 4. Xanax 1 mg oral daily at bedtime as needed for anxiety. 5. Bupropion XL 300 mg oral daily. 6. Melatonin 3 mg oral daily at bedtime. HISTORY OF PRESENT ILLNESS/HOSPITAL COURSE: Ms. Vásquez is a 42-year-old female with past medical history significant for catatonia, PTSD, IBS, depression, anxiety, and borderline personality disorder, who is also a smoker, who presented to the emergency room after noticing trouble grasping a cup with the right hand and having difficulties with words. She presented to the emergency room for further evaluation. While in the emergency room, a Code Swanson was called. The patient had a brain CT that was negative. She had some weakness in her right arm and trouble speaking. She was seen in consultation by Dr. Purcell with Neurology, who felt that she should be admitted as an observation for TIA workup. While in the hospital, the patient underwent an MRI of her head to look at her intracranial circulation as she had an IODINE allergy, was not able to have CTA. She underwent an echocardiogram with no significant findings. She had fasting lipids showing elevated cholesterol or elevated LDL. Her right hand weakness and tingling resolved. There were no events noted on telemetry. She had a negative carotid ultrasound. It was felt that she was stable for discharge to home today. Ms. Vásquez is stable for discharge to home today. Vital signs are as follows: Temperature 98.9, heart rate 86, respiratory rate 16, O2 sat 98% on room air, blood pressure 108/67. DISCHARGE PLANNING: The patient will be discharged to home. Activity as tolerated. She will be on a heart-healthy diet. She has been started on atorvastatin for her elevated lipids. She has been encouraged to stop smoking. There was unclear etiology the cause of her right hand weakness. There are no signs of stroke on her workup. She has an appointment with Dr. Purcell for followup on 08/18/17 at 10:30 in the morning, in addition to an appointment with her primary care provider, Dr. Duran on 08/02/17 at 1:40 p.m. I prescribed the patient a nicotine inhaler to assist to stop her from smoking. She has also been started on a baby aspirin. The patient was asked to return to emergency room for any chest pain, shortness of breath, signs of stroke. This is a summarized report of a complex medical history and hospital stay. For further details, please see the entire medical record. TIME SPENT: Time for this discharge was approximately 50 minutes, greater than half of that was spent with the patient and daughter discussing discharge plans and instructions. CONDITION ON DISCHARGE: Stable. DANIEL STEELE, MASTER AUTOMOTIVE GLASS TECHNICIAN [id number]/[facility] #: [id number] [facility]sa
== END 2017-07-28 14:05 | disposition home or self-care (01) ==
LOC: ED 11:57 → MEDTELE 16:19
PROVIDERS: ADMIT Internal Medicine; ATTEND Internal Medicine
DX: G45.9 Transient cerebral ischemic attack, unspecified (principal); F43.12 Post-traumatic stress disorder, chronic; K58.9 Irritable bowel syndrome, unspecified; F41.8 Other specified anxiety disorders; M62.81 Muscle weakness (generalized); R47.9 Unspecified speech disturbances; Z79.82 Long term (current) use of aspirin; X58.XXXA Exposure to other specified factors, initial encounter; Y92.9 Unspecified place or not applicable; F60.3 Borderline personality disorder; F17.210 Nicotine dependence, cigarettes, uncomplicated
CPT/HCPCS: 36415; 70450; 70544; 70551; 71045; 80048; 80053; 80061; 81003; 82608; 82746; 83036; 83090; 83605; 84443; 84484; 84702; 85025; 85610; 85730; 86850; 86900; 86901; 93005; 93306; 93880; 96374; 99284; 99406; A9270-GY; G0378

== ENCOUNTER 2019-07-18 09:00 | Emergency (ER) | payer BC, MEDICAID ==
--- OUTSIDE RECORDS SUMMARY | 2019-07-18 09:13 | XMS REPORT ---
:1975 Author Organization [facility] Care Team Providers Name Role Phone Odette Fongnda Primary Care Physician Unavailable Allergies, Adverse Reactions, Alerts Allergy Code CodeSystem Reaction Severity Criticality Status Start Substance Date Moderate Medications Medication Medication Medication Start Stop Route Dose Status Fill Code CodeSystem Date Date Instructions propranolol 530412 RxNorm 2018-06 oral 10 mg 1 active Take 1 tablet 0-15 tablet by mouth twice a twice a day day as needed for 30 day(s) aripiprazole 628802 RxNorm 2018- oral 2 mg completed for 30 4-16 05-30 tablet day(s) Xanax 674701 RxNorm 2018- oral 1 mg 1 completed 1 tablet 01-01 08-22 tablet twice a day twice a as needed for day 30 day(s) bupropion HCl 788888 RxNorm 2018- oral 300 mg completed for 30 3-19 04-16 tablet day(s) extended release 24 hr Zoloft 602925 RxNorm 2018-06 oral 50 mg 1 active 1 tablet 0-15 tablet once a day once a for 30 day(s) day aripiprazole 473332 RxNorm 2018- oral 5 mg completed for 30 5-30 09-21 tablet day(s) Xanax 577451 RxNorm 2018- oral 1 mg 1 completed 1 tablet 6 07-23 tablet twice a day twice a as needed for day 30 day(s) alprazolam 19720713 RxNorm 2018- oral 1 mg 1 active Take 1 tablet 917 11-14 tablet at by mouth at bedtime bedtime as needed for 30 day(s) alprazolam 19720713 RxNorm 2019- oral 1 mg completed for 30 4-16 05-16 tablet day(s) aripiprazole 185515 RxNorm 2019- oral 5 mg completed for 30 3-19 04-16 tablet day(s) bupropion HCl 329915 RxNorm 2019- oral 300 mg active for 30 4-16 12-14 tablet day(s) extended release 24 hr trazodone 820835 RxNorm 2019- oral 50 mg active for 30 -19 12-14 tablet day(s) Xanax 356764 RxNorm 2018- oral 1 mg 1 completed 1 tablet 30 06-25 tablet twice a day twice a as needed for day 30 day(s) nicotine 079457 RxNorm 2019- TD 21 mg/24 completed for 28 08-28 09-17 hr patch day(s) 24 hour alprazolam 19720713 RxNorm 2018- oral 1 mg completed for 30 08-28 04-16 tablet day(s) betamethasone 178977 RxNorm top 0.05% active for 30 dipropionate cream day(s) atorvastatin 672867 RxNorm oral 40 mg active for 90 1-03 tablet day(s) ferrous 130760 RxNorm 2017-06 oral 325 mg active for 90 sulfate 1-26 (65 mg day(s) iron) tablet Problems Problem Name Code CodeSystem Alternate Alternate Start End Status Narrative Code CodeSystem Date Date Post-traumatic 27987544 SNOMED-CT Active stress 5-01 disorder, unspecified Recurrent 62613846 SNOMED-CT 2018-06 Active depressive 0-15 disorder, current episode moderate 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, 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 Nicotine 02813190 SNOMED-CT Active dependence, 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, uncomplicated Dysthymia 59834966 SNOMED-CT Active 5-01 Relevant diagnostic tests/laboratory data Narrative No Information Procedures Procedure Code CodeSystem Target Date of Status Service Device Device Device Name Site Procedure Delivery Code Name UID Location Psychotherap [id number] SNOMED-CT () 2019-03-27 complete Mental y, 44 04 d Health- minutes with [address], [id number] [id number] Psychotherap [id number] SNOMED-CT () 2019-02-27 complete Mental y, 45 04 d Health- minutes with [address], [id number] [id number] Psychotherap [id number] SNOMED-CT () 2018-12-12 complete Mental y, 45 04 d Health- minutes with [address], [id number] [phone] Psychotherap [id number] SNOMED-CT () 2018-12-31 complete Mental y, 45 04 d Health- minutes with [address], [id number] [phone] Psychotherap [id number] SNOMED-CT () 2019-01-07 complete Mental y, 45 04 d Health- minutes with [address], [id number] [id number] Psychotherap [id number] SNOMED-CT () 2019-01-24 complete Mental y, 45 04 d Health- minutes with [address], [id number] [id number] Psychotherap [id number] SNOMED-CT () 2019-01-30 complete Mental y, 45 04 d Health- minutes with [address], [id number] [id number] Psychotherap [id number] SNOMED-CT () 2018-10-18 complete Mental y, 45 04 d Health- minutes with [address], [id number] [id number] Psychotherap [id number] SNOMED-CT () 2018-11-29 complete Mental y, 45 04 d Health- minutes with [address], [id number] [id number] Psychotherap [id number] SNOMED-CT () 2018-09-20 complete Mental y, 45 04 d Health- minutes with [address], [id number] [phone] Psychotherap [id number] SNOMED-CT () 2018-09-27 complete Mental y, 45 04 d Health- minutes with [address], [id number] [id number] Psychotherap [id number] SNOMED-CT () 2018-10-10 complete Mental y, 44 04 d Health- minutes with [facility] patient [address], [id number] [phone] Office or [id number] SNOMED-CT () 2018-09-25 complete Mental other 7 d Health- outpatient [facility] visit for [address], established [id number] patient, [id number] which requires at least 2 of these 3 schwartz components: An expanded problem focused history; An expanded problem focused examination; Medical decision making of low Office or [id number] SNOMED-CT () 2018-12-04 complete Mental other 7 d Health- outpatient [facility] visit for [address], established [id number] patient, [phone] which requires at least 2 of these 3 schwartz components: An expanded problem focused history; An expanded problem focused examination; Medical decision making of low Office or [id number] SNOMED-CT () 2019-01-01 complete Mental other 7 d Health- outpatient [facility] visit for [address], established [id number] patient, [id number] which requires at least 2 of these 3 schwartz components: An expanded problem focused history; An expanded problem focused examination; Medical decision making of low Office or [id number] SNOMED-CT () 2019-02-26 complete Mental other 7 d Health- outpatient [facility] visit for [address], established [id number] patient, [id number] which requires at least 2 of these 3 schwartz components: An expanded problem focused history; An expanded problem focused examination; Medical decision making of low Office or [id number] SNOMED-CT () 2018-11-08 complete Mental other 6 d Health- outpatient [facility] visit for [address], established [id number] patient, [phone] which requires at least 2 of these 3 schwartz components: A problem focused history; A problem focused examination; Straightforw sally medical decision making. Counselin Office or [id number] SNOMED-CT () 2019-03-26 complete Mental other 6 d Health- outpatient [facility] visit for [address], established [id number] patient, [phone] which requires at least 2 of these 3 schwartz components: A problem focused history; A problem focused examination; Straightforw sally medical decision making. Counselin Office or [id number] SNOMED-CT () 2019-04-23 complete Mental other 6 d Health- outpatient [facility] visit for [address], established [id number] patient, [phone] which requires at least 2 of these 3 schwartz components: A problem focused history; A problem focused examination; Straightforw sally medical decision making. Veronica SNOMED-CT () 2018-11-08 complete Mental d [address], [id number] [id number] SNOMED-CT () 2019-02-04 complete Mental d [address], [id number] [phone] SNOMED-CT () 2019-03-19 complete Mental d [address], [id number] [id number] SNOMED-CT () 2019-04-17 complete Mental d [address], [id number] [phone] SNOMED-CT () 2019-02-13 complete Mental d [address], [id number] [phone] Encounters/Encounter Diagnoses Encounter Encounter Diagnosis Diagnosis Diagnosis Date of Service Name Code Code Name CodeSystem Diagnosis Delivery Location Non-Billable 31122 [id number] Recurrent SNOMED-CT 2019-04-25 Behavioral depressive Health disorder, Clinic , , current , episode moderate Vital Signs No Information Social History Element Description Description Start End Code CodeSystem AdditionalInfo Date Date SexAssignedAtBirth Female 1974-06 F AdministrativeGender 19 Hospital Discharge Instructions Reason For Referral Medical Equipment FDA Assessments
--- NOTE | 2019-07-18 09:47 | ED ---
Complex/Multi-Sys Presentation - HPI Summary HPI Summary: Pt. is a 44 y.o female who presents to the ER for complaints of ongoing low back pain x several months. Pt. notes that offer the last few days pain has gotten worse. Has been taking 800mg motrin with some relief. Pt. states she has also been feeling poorly the last few days and has been feeling foggy and blurred vision. Denies chest pain or SOB. Past hx of obesity, HTN, TIA. Pt. also notes pain to mid right side of back and a burning sensation. Pt. notes she has been cleaning more at home, increasing low back pain. Pt. denies cp, sob , abd. pain, urinary sxs. Denies numbness, tingling or weakness. Sxs are moderate in severity. No current modifying factors. - History Of Current Complaint Chief Complaint: EDBackInjuryPain Time Seen by Provider: 07/18/19 09:12 Hx Obtained From: Patient - Allergies/Home Medications Allergies/Adverse Reactions: Allergies Allergy/AdvReac Type Severity Reaction Status Date / Time iodine Allergy Intermediate Rash And Verified 07/18/19 09:07 Itching morphine Allergy Intermediate Rash And Verified 07/18/19 09:07 Itching sertraline [From Zoloft] Allergy Diarrhea Verified 07/18/19 09:08 Home Medications: Home Medications Atorvastatin* [Lipitor 40 MG*] 40 mg PO DAILY 07/18/19 [History Confirmed ] Docusate CAP* [Colace Cap*] 100 mg PO DAILY 07/18/19 [History Confirmed 07/18/19 ] Escitalopram * [Lexapro 10 mg (NF)] 10 mg PO DAILY 07/18/19 [History Confirmed 07/18/19] Ferrous Sulfate TAB* 325 mg PO MOWEFR 07/18/19 [History Confirmed 07/18/19] Ibuprofen TAB* [Motrin TAB* 800 MG] 800 mg PO Q6H PRN 07/18/19 [History Confirmed 07/18/19] Propranolol 10 mg TAB [Inderal 10 mg TAB] 10 mg PO DAILY 07/18/19 [History Confirmed 07/18/19] Triamcinolone 0.1% CREAM (NF) [Kenalog 0.1% Cream (NF)] 1 applic TOPICAL BID 11/29 [History Confirmed 02/06/20] traZODone TAB* [Desyrel TAB*] 50 mg PO BEDTIME 07/18/19 [History Confirmed 07/18] PMH/Surg Hx/FS Hx/Imm Hx Previously Healthy: Yes Cardiovascular History: Denies: Hx Embolism, Hx Hypertension, Hx Pacemaker/ICD Respiratory History: Reports: Other Respiratory Problems/Disorders - bronchitis Denies: Hx Chronic Obstructive Pulmonary Disease (COPD), Hx Pneumonia, Hx Sleep Apnea GI History: Reports: Hx Gall Bladder Disease - mir Denies: Hx Gastroesophageal Reflux Disease History: Denies: Hx Chronic Renal Failure Musculoskeletal History: Reports: Other Musculoskeletal History - left foot fracture and metal pinned Sensory History: Reports: Hx Contacts or Glasses Denies: Hx Hearing Aid Opthamlomology History: Reports: Hx Contacts or Glasses Neurological History: Reports: Hx Transient Ischemic Attacks (TIA) - 07/27/17 possible Denies: Hx Dementia, Hx Seizures, Other Neuro Impairments/Disorders Psychiatric History: Reports: Hx Anxiety, Hx Depression, Hx Panic Disorder, Hx Post Traumatic Stress Disorder, Hx Inpatient Treatment, Hx Community Mental Health Tx, Other Psychiatric Issues/Disorders - Borderline personality disorder Denies: Hx Eating Disorder, Hx of Violent Episodes Against Others - Surgical History Surgery Procedure, Year, and Place: TUBAL LIGATION, CSECTION X4, CHOLECYSTECTOMY ; gallbladder; ankle Infectious Disease History: No Infectious Disease History: Denies: Traveled Outside the [place] in Last 30 Days - Family History Known Family History: Positive: Unknown, Hypertension - Father - Social History Occupation: Unemployed Lives: With Family Alcohol Use: None Substance Use Type: Reports: None Hx Tobacco Use: Yes Smoking Status (MU): Light Every Day Tobacco Smoker Type: Cigarettes Amount Used/How Often: "3 cigs per day" Length of Time of Smoking/Using Tobacco: "20 plus" Have You Smoked in the Last Year: Yes Review of Systems Positive: Fever Positive: Blurred Vision ENT: Negative Cardiovascular: Negative Negative: Palpitations, Chest Pain Respiratory: Negative Negative: Shortness Of Breath, Cough Gastrointestinal: Negative Negative: Abdominal Pain Genitourinary: Negative Positive: Other - low and mid back pain. Positive: Headache All Other Systems Reviewed And Are Negative: Yes Physical Exam Vital Signs On Initial Exam: Initial Vitals Temp Pulse Resp BP Pulse Ox 97.4 F 68 16 123/82 96 07/18/19 09:01 07/18/19 09:01 07/18/19 09:01 07/18/19 09:01 07/18/19 09:01 Procedures - Sedation Patient Received Moderate/Deep Sedation with Procedure: No Diagnostics - Vital Signs Vital Signs Temp Pulse Resp BP Pulse Ox 07/18/19 09:01 97.4 F 68 16 123/82 96 - Laboratory Result Diagrams: 07/18/19 09:51 07/18/19 09:51 Lab Statement: Any lab studies that have been ordered have been reviewed, and results considered in the medical decision making process. Complex Multi-Symp Course/Dx Course Of Treatment: Pt. c/o ongoing low back pain and fague c/o mid back pain, h/a, and fatigue. Afebrile with stable VS. Pt.'s pain minimal in ED. Given hx will obtain cardiac w/u and xrays. ECG done at 1000 shows a sinus bradycardia of 58bpm, normal axis, no ST elevation or depression. Labs unremarkable. U/A shows small blood and glucose without infection. CXR negative for acute findings. Lumbar xray shows mild DDD per radiology. On re-exam results discussed. Pt. notes feeling h/a and fuzzy vision. Pt. notes she did not eat today. Crackers and juice given and pt. feeling better. She ambulated the ed without difficulty. WIll dc home to .u with pcp. Can going motrin as directed. May benefit from PT. WIll return to er if sxs change or worsen. - Diagnoses Differential Diagnoses/HQI/PQRI: Cardiac Ischemia, Metabolic Abnormality, Urinary Tract Infection Provider Diagnoses: Degenerative disc disease, Lumbar back pain Discharge ED - Sign-Out/Discharge Documenting (check all that apply): Patient Departure - Discharge Plan Condition: Good Disposition: HOME Patient Education Materials: Chronic Back Pain (DC), Degenerative Disc Disease (ED) Referrals: Manuel CROCKETT,Anabel Good [Primary Care Provider] - Additional Instructions: Please schedule a follow up appointment with your PCP You may benefit from physical therapy Continue motrin for pain as directed Return to ER for increased pain, leg numbness/weakness, loss of bowel of bladder function, or if concerned - Billing Disposition and Condition Condition: GOOD Disposition: Home - Attestation Statements Provider Attestation: pt seen by midlevel provider independently, based on their assessment, it was not necessary to present the case to me but I was available for consultation. I did not form a physician-patient relationship with the patient. The chart however, has been reviewed. am signing this note strictly in an administrative capacity.
[2019-07-18 10:00] LABS: ABS Eosinophils 0.1 10^3/ul (0-0.6); ABS Lymphocytes 1.3 10^3/ul (1.0-4.8); ABS Monocytes 0.4 10^3/ul (0-0.8); ABS Neutrophils 3.3 10^3/ul (1.5-7.7); Eosinophil % 2.3 %; Hematocrit 38 % (35-47); Lymphocyte % 25.9 %; Mean Corpuscular HGB Conc 34 g/dL (31-36); Mean Corpuscular Hemoglobin 31 pg (27-31); Mean Corpuscular Volume 91 fL (80-97); Mean Platelet Volume 7.1 fL (7.4-10.4); Nucleated Red Blood Cells % 0.1; Platelet Count 242 10^3/uL (150-450); Red Blood Count 4.17 10^6 /uL (3.70-4.87); Red Cell Distribution Width 13 % (10-15); White Blood Count 5.2 10^3/uL (3.5-10.8)
[2019-07-18 10:11] LABS: Urine Appearance Cloudy; Urine Bilirubin Negative (Negative); Urine Blood 1+ (Negative); Urine Color Yellow; Urine Glucose 1+(50 mg/dL) (Negative); Urine Ketones Trace (Negative); Urine Nitrite Negative (Negative); Urine Protein Negative (Negative); Urine Specific Gravity 1.014 (1.010-1.030); Urine Urobilinogen Negative (Negative)
[2019-07-18 10:16] LABS: Urine Bacteria Absent (Absent); Urine Red Blood Cell Trace(0-2/hpf) (Absent); Urine Squamous Epithelial Cell Present (Absent); Urine White Blood Cell Absent (Absent)
[2019-07-18 10:19] LABS: Albumin 4.3 g/dL (3.2-5.2); Albumin/Globulin Ratio 1.7 (1-3); BUN/Creatinine Ratio 14.7 (8-20); Calcium 9.4 mg/dL (8.6-10.3); EGFR African American 70.9 (>60); EGFR Non-African American 58.6 (>60); Globulin 2.5 g/dL (2-4); Potassium 4.2 mmol/L (3.5-5.0); Total Bilirubin 0.4 mg/dL (0.2-1.0); Total Protein 6.8 g/dL (6.4-8.9)
[2019-07-18] MEDS ORDERED: Acetaminophen TAB* 325 MG PO ONE (10:50)
[2019-07-18 12:54] VITALS: BP 132/64
== END 2019-07-18 12:45 | disposition home or self-care (01) ==
LOC: ED 09:00
DX: M51.36 Other intervertebral disc degeneration, lumbar region (principal); M54.5 Low back pain; E66.9 Obesity, unspecified; I10 Essential (primary) hypertension; Z86.73 Personal history of transient ischemic attack (TIA), and cerebral infarction without residual deficits; Z79.899 Other long term (current) drug therapy; Z88.2 Allergy status to sulfonamides; Z88.6 Allergy status to analgesic agent; Z88.1 Allergy status to other antibiotic agents; F41.9 Anxiety disorder, unspecified; F32.9 Major depressive disorder, single episode, unspecified; Z87.19 Personal history of other diseases of the digestive system; F17.210 Nicotine dependence, cigarettes, uncomplicated; R51 Headache
CPT/HCPCS: 36415; 71046; 72110; 80053; 81003; 81015; 84484; 85025; 93005; 99284; A9270-GY

== ENCOUNTER 2020-01-28 18:27 | Inpatient (IN) ==
[2020-01-28 20:16] LABS: ABS Basophils 0.1 10^3/ul (0-0.2); ABS Eosinophils 0.1 10^3/ul (0-0.6); ABS Lymphocytes 2.8 10^3/ul (1.0-4.8); ABS Monocytes 0.7 10^3/ul (0-0.8); ABS Neutrophils 6.3 10^3/ul (1.5-7.7); Eosinophil % 1.3 %; Hematocrit 41 % (35-47); Hemoglobin 14.5 g/dL (12.0-16.0); Lymphocyte % 28.1 %; Mean Corpuscular HGB Conc 35 g/dL (31-36); Mean Corpuscular Hemoglobin 32 pg (27-31); Mean Corpuscular Volume 90 fL (80-97); Mean Platelet Volume 7.6 fL (7.4-10.4); Nucleated Red Blood Cells % 0.1; Platelet Count 299 10^3/uL (150-450); Red Blood Count 4.56 10^6 /uL (3.70-4.87); Red Cell Distribution Width 12 % (10-15)
[2020-01-28 20:34] LABS: HCG Pregnancy 2.13 mIU/mL
[2020-01-28 20:39] LABS: ALT 91 U/L (7-52); AST 45 U/L (13-39); Albumin 5.1 g/dL (3.2-5.2); Albumin/Globulin Ratio 1.6 (1-3); Alkaline Phosphatase 129 U/L (34-104); Anion Gap 10 mmol/L (2-11); BUN/Creatinine Ratio 15.9 (8-20); Blood Urea Nitrogen 14 mg/dL (6-24); CO2 Carbon Dioxide 25 mmol/L (22-32); Calcium 10.4 mg/dL (8.6-10.3); Chloride 104 mmol/L (101-111); EGFR African American 84.1 (>60); EGFR Non-African American 69.5 (>60); Globulin 3.1 g/dL (2-4); Glucose 121 mg/dL (70-100); Potassium 3.7 mmol/L (3.5-5.0); Sodium 139 mmol/L (135-145); Total Protein 8.2 g/dL (6.4-8.9)
[2020-01-28 20:40] LABS: Acetaminophen < 15 mcg/mL; Alcohol, S < 10 mg/dL (<10); Salicylate < 2.50 mg/dL (<30)
[2020-01-28 21:37] LABS: Lithium < 0.10 mmol/L (0.6-1.2)
[2020-01-29] MEDS ORDERED: Al Hydrox/Mg Hydrox/Simet LIQ 30 ML UDC PO PRN (06:53)
[2020-01-29] MEDS: Vitamin THERAPEUTIC TAB PO SCH (12:01)
[2020-01-30 08:01] LABS: HDL Cholesterol 29.2 mg/dL
[2020-01-30] MEDS: Vitamin THERAPEUTIC TAB PO SCH (08:54)
[2020-01-30] MEDS: Aspirin EC 81 mg TAB.EC (enteric coated) PO SCH (08:54)
[2020-01-30 10:49] LABS: Urine Benzodiazepine Screen None Detected (None Detect); Urine Cannabinoids Screen None Detected (None Detect); Urine Opiates Screen None Detected (None Detect)
[2020-01-31] MEDS: Aspirin EC 81 mg TAB.EC (enteric coated) PO SCH (08:30)
[2020-01-31] MEDS: Vitamin THERAPEUTIC TAB PO SCH (08:30)
[2020-02-01] MEDS: Vitamin THERAPEUTIC TAB PO SCH (09:08)
[2020-02-01] MEDS: Aspirin EC 81 mg TAB.EC (enteric coated) PO SCH (09:08)
[2020-02-02] MEDS: Vitamin THERAPEUTIC TAB PO SCH (08:35)
[2020-02-02] MEDS: Aspirin EC 81 mg TAB.EC (enteric coated) PO SCH (08:35)
[2020-02-03] MEDS: Vitamin THERAPEUTIC TAB PO SCH (09:23)
[2020-02-03] MEDS: Aspirin EC 81 mg TAB.EC (enteric coated) PO SCH (09:24)
[2020-02-04] MEDS ORDERED: Polyethylene Glycol 3350 17 GM PACKET PO PRN (09:41)
[2020-02-04] MEDS: Aspirin EC 81 mg TAB.EC (enteric coated) PO SCH (09:48)
[2020-02-04] MEDS: Vitamin THERAPEUTIC TAB PO SCH (09:48)
[2020-02-05] MEDS: Aspirin EC 81 mg TAB.EC (enteric coated) PO SCH (08:16)
[2020-02-05] MEDS: Vitamin THERAPEUTIC TAB PO SCH (08:31)
[2020-02-06] MEDS: Aspirin EC 81 mg TAB.EC (enteric coated) PO SCH (08:45)
[2020-02-06] MEDS: Vitamin THERAPEUTIC TAB PO SCH (08:53)
[2020-02-07] MEDS: Vitamin THERAPEUTIC TAB PO SCH (11:10)
[2020-02-07] MEDS: Aspirin EC 81 mg TAB.EC (enteric coated) PO SCH (11:10)
[2020-02-08] MEDS: Aspirin EC 81 mg TAB.EC (enteric coated) PO SCH (09:08)
[2020-02-08] MEDS: Vitamin THERAPEUTIC TAB PO SCH (09:08)
[2020-02-09] MEDS: Aspirin EC 81 mg TAB.EC (enteric coated) PO SCH (09:41)
[2020-02-09] MEDS: Vitamin THERAPEUTIC TAB PO SCH (09:43)
[2020-02-10] MEDS: Vitamin THERAPEUTIC TAB PO SCH (08:44)
[2020-02-10] MEDS: Aspirin EC 81 mg TAB.EC (enteric coated) PO SCH (08:44)
[2020-02-10 08:51] VITALS: BP 123/68
== END 2020-02-10 15:15 | disposition home or self-care (01) | DRG 755 ==
LOC: ED 18:27 → BSU 01-29 02:50
PROVIDERS: ADMIT Psychiatry & Neurology Psychiatry; ATTEND Psychiatry & Neurology Psychiatry

== ENCOUNTER 2021-08-17 09:33 | Inpatient (IN) ==
[2021-08-17 10:35] LABS: ABS Basophils 0.1 10^3/ul (0-0.2); ABS Eosinophils 0.1 10^3/ul (0-0.6); ABS Lymphocytes 1.9 10^3/ul (1.0-4.8); ABS Monocytes 0.5 10^3/ul (0-0.8); ABS Neutrophils 5.8 10^3/ul (1.5-7.7); Eosinophil % 1.6 %; Hematocrit 40 % (35-47); Hemoglobin 13.9 g/dL (12.0-16.0); Lymphocyte % 22.7 %; Mean Corpuscular HGB Conc 35 g/dL (31-36); Mean Corpuscular Hemoglobin 31 pg (27-31); Mean Corpuscular Volume 89 fL (80-97); Mean Platelet Volume 7.2 fL (7.4-10.4); Nucleated Red Blood Cells % 0.2; Platelet Count 350 10^3/uL (150-450); Red Blood Count 4.47 10^6 /uL (3.70-4.87); Red Cell Distribution Width 13 % (10-15); White Blood Count 8.4 10^3/uL (3.5-10.8)
[2021-08-17 10:57] LABS: Urine Appearance Cloudy; Urine Bacteria Absent (Absent); Urine Bilirubin Negative (Negative); Urine Blood Negative (Negative); Urine Color Yellow; Urine Glucose Negative (Negative); Urine Ketones Negative (Negative); Urine Nitrite Negative (Negative); Urine Protein Negative (Negative); Urine Red Blood Cell Trace(0-2/hpf) (Absent); Urine Specific Gravity 1.015 (1.002-1.030); Urine Squamous Epithelial Cell Present (Absent); Urine Urobilinogen Negative (Negative); Urine White Blood Cell Trace(0-5/hpf) (Absent)
[2021-08-17 10:59] LABS: Urine Benzodiazepine Screen None Detected (None Detect); Urine Cannabinoids Screen Presumptive Positive (None Detect); Urine Opiates Screen None Detected (None Detect)
[2021-08-17 11:06] LABS: ALT 35 U/L (7-52); AST 25 U/L (13-39); Acetaminophen < 15 mcg/mL; Albumin 4.4 g/dL (3.2-5.2); Albumin/Globulin Ratio 1.8 (1-3); Alcohol, S < 13 mg/dL (<13); Alkaline Phosphatase 88 U/L (35-149); Anion Gap 5 mmol/L (2-11); Blood Urea Nitrogen 10 mg/dL (6-24); CO2 Carbon Dioxide 28 mmol/L (22-32); Calcium 9.8 mg/dL (8.6-10.3); Chloride 107 mmol/L (101-111); Globulin 2.5 g/dL (2-4); Glucose 104 mg/dL (70-100); Potassium 3.8 mmol/L (3.5-5.0); Salicylate < 2.50 mg/dL (<30); Sodium 140 mmol/L (135-145); Total Protein 6.9 g/dL (6.4-8.9); eGFR CKD-EPI 108.4 (>60)
[2021-08-17 11:19] LABS: TSH Ultra Thyroid Stim Horm 0.88 mcIU/mL (0.34-5.60)
[2021-08-17] MEDS ORDERED: Al Hydrox/Mg Hydrox/Simet LIQ 30 ML UDC PO PRN (16:48)
[2021-08-17] MEDS ORDERED: DULoxetine DR 30 mg CAP PO SCH (21:00)
[2021-08-18 08:54] LABS: HDL Cholesterol 36.7 mg/dL
[2021-08-18] MEDS ORDERED: Aspirin EC 81 mg TAB.EC (enteric coated) PO SCH (09:00)
[2021-08-18] MEDS: Nicotine Lozenge mini 4 MG LOZNG.MINI MT PRN ×2 (18:35→21:06)
[2021-08-18 20:19] LABS: Vitamin D Total 25(OH) 26.3 ng/mL (20-50)
[2021-08-19] MEDS ORDERED: Nicotine PATCH 21 MG/24 HR PATCH TRANSDERM SCH (09:00)
[2021-08-20] MEDS: Nicotine PATCH 21 MG/24 HR PATCH TRANSDERM SCH (13:57)
[2021-08-21] MEDS: Nicotine PATCH 21 MG/24 HR PATCH TRANSDERM SCH (07:43)
[2021-08-22] MEDS: Nicotine PATCH 21 MG/24 HR PATCH TRANSDERM SCH (09:40)
[2021-08-23] MEDS: Nicotine PATCH 21 MG/24 HR PATCH TRANSDERM SCH (09:53)
[2021-08-24 08:34] VITALS: BP 106/71
== END 2021-08-24 11:53 | disposition home or self-care (01) | DRG 753 ==
LOC: ED 09:33 → BSU 16:48
PROVIDERS: ADMIT Psychiatry & Neurology Psychiatry; ATTEND Psychiatry & Neurology Psychiatry